=== PATIENT | male | born 1960 | race Caucasian/White ===

== ENCOUNTER 2016-10-10 22:44 | Inpatient (IN) | payer MEDICAID, OTHER ==
[~2016-10-10] VITALS: Ht 170.2 cm; Wt 75.0 kg
[2016-10-10 22:47] VITALS: Ht 170.2 cm; Wt 75.0 kg
[2016-10-11] MEDS ORDERED: LIDOCAINE/MYLANTA 40 ML BTL PO STA (00:31)
[2016-10-11] MEDS ORDERED: ONDANSETRON 4 MG INJ IV STA ×2 (00:31→02:50)
[2016-10-11] MEDS ORDERED: morphine 2 MG INJ IV STA (00:31)
[2016-10-11] MEDS ORDERED: SOD CHLORIDE 0.9% 1,000 ML IV STA (00:31)
[2016-10-11] MEDS ORDERED: FAMOTIDINE 20 MG INJ IV STA (00:31)
[2016-10-11 00:46] LABS: ADD SCAN DIFF NO
[2016-10-11 00:49] LABS: BASOPHILS % 0.2 % (0.0-2.0); EOSINOPHILS # 0.1 10^3/ul (0.0-0.5); EOSINOPHILS % 0.5 % (0.0-7.0); HEMATOCRIT 36.8 % (42.0-52.0); HEMOGLOBIN 12.5 g/dl (14.0-18.0); LYMPHOCYTES # 0.7 10^3/ul (0.8-2.9); LYMPHOCYTES % 5.5 % (15.0-51.0); MEAN CORPUSCULAR HEMOGLOBIN 28.3 pg (29.0-33.0); MEAN CORPUSCULAR VOLUME 83.3 fl (82.0-101.0); MEAN PLATELET VOLUME 10.4 fl (7.4-10.4); MONOCYTE # 0.8 10^3/ul (0.3-0.9); MONOCYTES % 6.7 % (0.0-11.0); NEUTROPHIL # 10.4 10^3/ul (1.6-7.5); NEUTROPHILS % 86.7 % (39.0-77.0); PLATELET COUNT 231 10^3/UL (140-415); RED BLOOD COUNT 4.42 10^6/ul (4.70-6.10); RED CELL DISTRIBUTION WIDTH 13.1 % (11.5-14.5)
[2016-10-11 00:57] LABS: POTASSIUM 3.2 mmol/L (3.5-5.1)
[2016-10-11 00:59] LABS: CREATININE 0.65 mg/dl (0.61-1.24)
[2016-10-11 01:00] LABS: ALBUMIN/GLOBULIN RATIO 1.33; BILIRUBIN,INDIRECT 0.3 mg/dl (0-1.1); BILIRUBIN,TOTAL 0.3 mg/dl (0.2-1.3); CALCIUM 8.9 mg/dl (8.4-10.2)
[2016-10-11 01:11] LABS: URINE BILIRUBIN (Dip) NEGATIVE (NEGATIVE); URINE BLOOD (Dip) NEGATIVE (NEGATIVE); URINE COLOR LT. YELLOW (YELLOW); URINE GLUCOSE (Dip) NEGATIVE (NEGATIVE); URINE KETONES (Dip) 15 (NEGATIVE); URINE LEUKOCYTE ESTERASE (Dip) NEGATIVE (NEGATIVE); URINE NITRITE (Dip) NEGATIVE (NEGATIVE); URINE UROBILINOGEN (Dip) 0.2 E.U./dL (0.1-1.0)
[2016-10-11 01:21] LABS: ADD UMIC NO; URINE TOTAL PROTEIN (Dip) NEGATIVE (NEGATIVE)
[2016-10-11] MEDS ORDERED: HYDROmorphONE 1 MG/ML SYG IV STA (02:50)
--- NOTE | 2016-10-11 02:55 | ERD ---
ER Documentation Chief Complaint Date/Time DATE: 10/11/16 TIME: 02:52 Chief Complaint mid abd pain w/ vomiting x 2 days HPI Patient is a 56-year-old male who comes in complaining of epigastric abdominal pain with nausea and vomiting. The who is translating states that the epigastric abdominal pain started after he ate some chicken that might been bad. The nausea and vomiting started yesterday. He has not had any fever, chest pain, shortness of breath, coughing, congestion, rhinorrhea, sore throat, or otalgia. He has not had any dysuria, hematuria, flank, back pain, or diarrhea. Eating increases the epigastric abdominal pain not eating helps the pain. He is never experienced this pain before. He has not been on any recent antibiotics nor has he traveled out of country. Nobody else has been sick. In the remainder of the systems are negative. ROS All systems reviewed and are negative except as per history of present illness. Allergies Allergies: Coded Allergies: No Known Allergy (Unverified , 07/15/13) PMhx/Soc Medical and Surgical Hx: pt denies Surgical Hx Hx Cardiac Disorders: Yes (htn) Hx Miscellaneous Medical Probl: Yes (diabetes, high cholesterol) Hx Alcohol Use: No Hx Substance Use: No Hx Tobacco Use: No Smoking Status: Never smoker Physical Exam Vitals Vital Signs Date Time Temp Pulse Resp B/P Pulse Ox O2 Delivery O2 Flow Rate FiO2 10/11/16 02:49 78 16 159/86 98 Room Air 10/10/16 22:47 100.4 87 20 191/89 98 Physical Exam Const: [] Well-developed well-nourished male sitting on the bed no acute distress Head: Atraumatic normocephalic Eyes: Bilateral pterygium noted ENT: Normal External Ears, Nose and Mouth. Neck: Full range of motion..~ No meningismus. Resp: Clear to auscultation bilaterally Cardio: Regular rate and rhythm, no murmurs Abd: Soft, mild tenderness to palpation epigastric region, no masses, rebound , or guarding noted, audible bowel sounds throughout Skin: No petechiae or rashes Back: No midline tenderness to palpation, mild right flank pain Ext: No cyanosis, or edema Neur: Awake and alert, GCS of 15, moves all extremities equally, nonfocal Psych: Normal Mood and Affect Result Diagram: 10/11/16 0021 10/11/16 0021 Results 24 hrs Laboratory Tests Test 10/11/16 00:21 10/11/16 00:45 White Blood Count 12.010^3/ul Red Blood Count 4.4210^6/ul Hemoglobin 12.5g/dl Hematocrit 36.8% Mean Corpuscular Volume 83.3fl Mean Corpuscular Hemoglobin 28.3pg Mean Corpuscular Hemoglobin Concent 34.0g/dl Red Cell Distribution Width 13.1% Platelet Count 81277^3/UL Mean Platelet Volume 10.4fl Neutrophils % 86.7% Lymphocytes % 5.5% Monocytes % 6.7% Eosinophils % 0.5% Basophils % 0.2% Nucleated Red Blood Cells % 0.0/100WBC Neutrophils # 10.410^3/ul Lymphocytes # 0.710^3/ul Monocytes # 0.810^3/ul Eosinophils # 0.110^3/ul Basophils # 0.010^3/ul Nucleated Red Blood Cells # 0.010^3/ul Sodium Level 135mmol/L Potassium Level 3.2mmol/L Chloride Level 100mmol/L Carbon Dioxide Level 28mmol/L Anion Gap 10 Blood Urea Nitrogen 13mg/dl Creatinine 0.65mg/dl Glucose Level 148mg/dl Calcium Level 8.9mg/dl Total Bilirubin 0.3mg/dl Direct Bilirubin 0.00mg/dl Indirect Bilirubin 0.3mg/dl Aspartate Amino Transf (AST/SGOT) 22IU/L Alanine Aminotransferase (ALT/SGPT) 38IU/L Alkaline Phosphatase 125IU/L Total Protein 7.0g/dl Albumin 4.0g/dl Globulin 3.00g/dl Albumin/Globulin Ratio 1.33 Lipase 117U/L Urine Color LT. YELLOW Urine Clarity CLEAR Urine pH 7.5 Urine Specific Jack[place] 1.020 Urine Ketones 15 Urine Nitrite NEGATIVE Urine Bilirubin NEGATIVE Urine Urobilinogen 0.2 E.U./dL Urine Leukocyte Esterase NEGATIVE Urine Hemoglobin NEGATIVE Urine Glucose NEGATIVE% Urine Total Protein NEGATIVE Current Medications Medications (Trade) Dose Ordered Sig/Candace Route PRN Reason Start Time Stop Time Status Last Admin Dose Admin Sodium Chloride (NS) 1,000 ml @ 1,000 mls/hr Q1H STAT IV 10/11/16 00:31 10/11/16 01:30 DC 10/11/16 00:40 Morphine Sulfate (morphine) 2 mg ONCE STAT IV 10/11/16 00:31 10/11/16 00:33 DC 10/11/16 00:40 Ondansetron HCl (Zofran Inj) 4 mg ONCE STAT IV 10/11/16 00:31 10/11/16 00:34 DC 10/11/16 00:40 Famotidine (Pepcid Iv) 20 mg ONCE STAT IV 10/11/16 00:31 10/11/16 00:34 DC 10/11/16 00:40 Miscellaneous Medication (Gi Cocktail (2)) 40 ml ONCE STAT PO 10/11/16 00:31 10/11/16 00:34 DC 10/11/16 00:40 Hydromorphone HCl (Dilaudid) 1 mg ONCE STAT IV 10/11/16 02:50 10/11/16 02:52 DC 10/11/16 03:01 Ondansetron HCl (Zofran Inj) 4 mg ONCE STAT IV 10/11/16 02:50 10/11/16 02:52 DC 10/11/16 03:01 Procedures/MDM Financial includes but is not limited to epigastric abdominal pain, gastritis, gastroenteritis, peptic ulcer disease, food poisoning, atypical angina, pancreatitis CT of the abdomen and pelvis confirmed acute early pancreatitis 0500:Patient is remained hemodynamically stable while here. Given the fact that he is a diabetic with pancreatitis and feels most prudent to have him admitted for management. Has been discussed with the patient and his family. They have no questions at this time. Departure Diagnosis: Primary Impression: Pancreatitis Chronicity: acute Pancreatitis type: idiopathic Acute pancreatitis complication: unspecified Qualified Code: K85.00 - Idiopathic acute pancreatitis, unspecified complication status Additional Impressions: Abdominal pain Abdominal location: epigastric Qualified Code: R10.13 - Epigastric pain Diabetes mellitus Diabetes mellitus type: type 2 Diabetes mellitus complication status: with unspecified complications Diabetes mellitus snf insulin use: unspecified snf insulin use status Qualified Code: E11.8 - Type 2 diabetes mellitus with complication, unspecified terminal manager insulin use status Fever Fever type: unspecified Qualified Code: R50.9 - Fever, unspecified fever cause Condition: SOLEDAD Merino Oct 11, 2016 02:55
--- NOTE | 2016-10-11 02:56 | RADRPT ---
PROCEDURE: CT Abdomen and Pelvis without contrast. CLINICAL INDICATION: Abdominal pain TECHNIQUE: CT scan of the abdomen and pelvis without contrast was performed on a multidetector hig h-resolution CT scanner. The patient was scanned without intravenous contrast. No oral contrast was administered. Coronal and sagittal reformatted images were obtained from the axial source images. Im ages were reviewed on a high-resolution PACS workstation. The total exam CTDI equals 9.93 mGy and t he total exam DLP equals 650.4 mGy-cm. One or more of the following dose reduction techniques were used: - Automated exposure control. - Adjustment of the mA and/or kV according to patient size. - Use of iterative reconstruction technique. COMPARISON: None. FINDINGS: Lower chest: Mild dependent atelectasis is seen in the posterior lower lungs. Linear atelectasis/fi brosis is seen at the lung bases. There is mild diffuse wall thickening in the distal esophagus abov e the level of the hiatal hernia which could be due to esophagitis. Liver: No abnormality seen. Gallbladder: No abnormality seen. Spleen: No abnormality seen. Stomach: Moderate hiatal hernia. Pancreas: There is mild soft tissue stranding in fat surrounding the head of the pancreas which coul d be secondary to acute pancreatitis. Adrenals: No abnormality seen. Kidneys: No abnormality seen. There is nonspecific perinephric soft tissue stranding bilaterally. Abdominal aorta: No aneurysm seen. Lymph nodes: No enlarged lymph nodes are seen. Small bowel: No dilated small bowel loops are seen. Colon: Diverticula in sigmoid, descending, transverse, ascending colon. There is no specific eviden ce of acute diverticulitis seen. Appendix: No abnormality seen. Bladder: Impression on posterior inferior bladder by enlarged prostate. Pelvic organs: Mild to moderate enlargement of prostate with impression on posterior inferior bladd er. Ascites: None seen. Osseous structures: Lumbar spondylosis. Spinal stenosis in lumbar spine. Degenerative changes at s acroiliac joints and hips. IMPRESSION: Mild soft tissue stranding in fat surrounding the head of the pancreas which could be secondary to a cute pancreatitis. Moderate hiatal hernia. Mild diffuse wall thickening in the distal esophagus abo ve the level of the hiatal hernia which could be due to esophagitis. Colonic diverticulosis. No spe cific evidence of acute diverticulitis seen. Mild to moderate enlargement of prostate. Please see a felicita. RPTAT: HJES .Mikey Berger MD, MD Date Time Electronically viewed and signed by .Mikey Berger MD, on 10/11/2016 02:56 .S/
[2016-10-11] MEDS ORDERED: ONDANSETRON 4 MG INJ IV PRN ×2 (05:30→07:30)
[2016-10-11] MEDS ORDERED: ACETAMINOPHEN 325 MG TAB PO PRN (05:30)
[2016-10-11] MEDS ORDERED: morphine 2 MG INJ IV PRN (07:30)
[2016-10-11] MEDS ORDERED: NACL 0.9% 3 ML SYG IV SCH (07:30)
[2016-10-11] MEDS ORDERED: ACETAMINOPHEN 650 MG SUPP PR PRN (07:30)
[2016-10-11] MEDS ORDERED: SIMV40TA2 PO (07:46)
[2016-10-11] MEDS ORDERED: ASPI-664 PO (07:46)
[2016-10-11] MEDS ORDERED: METF500T4 PO (07:47)
[2016-10-11] MEDS ORDERED: BENA40TA41 PO (07:47)
--- NOTE | 2016-10-11 08:01 | HP ---
DATE OF ADMISSION: 10/10/2016 TIME SEEN: 5 a.m. CHIEF COMPLAINT: Abdominal pain and vomiting. HISTORY OF PRESENT ILLNESS: The patient is a 56-year-old male with a history of diabetes, hypertens ion, dyslipidemia who presented to the emergency department with abdominal pain and nausea and vomit ing. The pain is mainly localized in the epigastric area and started after he ate some chicken whic h his thinks was probably bad. The pain and vomiting started a few hours prior to presentation . Denied any fever, chills, chest pain, shortness of breath, or urinary symptoms. When he presented to the ER, he had a temperature of 100.4, blood pressure 191/89. Laboratory value shows a WBC of 12, hemoglobin 12.5, potassium 3.2, otherwise CBC and CMP are within normal limits. CT abdomen and pelvis without contrast shows mild soft tissue stranding in the fat surrounding the head of the pancreas which could be secondary to acute pancreatitis. Also noted was moderate hiatal hernia and mild diffuse wall thickening of the distal esophagus above the level of the hiatal herni a which could be due to esophagitis. The patient was given pain medication, antiemetics, and IV flu id while here in the ER. REVIEW OF SYSTEMS: A 12-point review was performed, negative except as mentioned in the HPI. PAST MEDICAL HISTORY: As per HPI. SOCIAL HISTORY: Drinks alcohol occasionally. Denied a history of tobacco, alcohol, or illicit drug use. ALLERGIES: NO KNOWN DRUG ALLERGIES. HOME MEDICATIONS: None listed. PHYSICAL EXAMINATION: VITAL SIGNS: Stable. GENERAL: No acute distress. HEENT: No obvious head deformity. Pupils react to light. Extraocular muscles intact. No scleral icterus. CARDIOVASCULAR: Regular rate and rhythm. No extra sounds. LUNGS: Clear. ABDOMEN: Soft. There is mild discomfort to deep palpation in the epigastric area. No guarding. N o rigidity. There are positive bowel sounds. EXTREMITIES: No edema. NEUROLOGIC: No focal deficits. LABORATORY: Pertinent positives as mentioned in the HPI. IMAGING: CT abdomen and pelvis without contrast with results as mentioned in the HPI. IMPRESSION: 1. Abdominal pain, nausea, and vomiting, most likely secondary to food poisoning and possibly early pancreatitis. 2. Probable acute early pancreatitis. 3. Sepsis as evidenced by fever and leukocytosis, secondary to above. 4. History of hypertension. 5. History of diabetes. 6. History of dyslipidemia. 7. Mild hypokalemia. PLAN: We will keep n.p.o. with IV fluids. We will provide pain medication and antiemetics as neede d. We will repeat his lipase along with amylase. Will correct electrolytes as needed. For the kayleen dwyer, he will be on insulin. Given his presentation of sepsis, will check urine culture and blood culture. Further workup and management per clinical course. Dictated By: JORGE LUIS HENDERSON/COLE Conf#: [id number] DID#: [id number]
[2016-10-11 08:21] VITALS: TEMP 98.2
[2016-10-11] MEDS: DEXTROSE 5%-0.45% NACL 1,000 ML IV SCH ×2 (08:48→15:40)
[2016-10-11] MEDS: FAMOTIDINE 20 MG INJ IV SCH ×2 (09:31→21:04)
[2016-10-11 16:08] VITALS: BP 160/77; PULSE 62; RESP 17
--- NOTE | 2016-10-11 16:23 | PN ---
Date/Time of Note Date/Time of Note DATE: 10/11/16 TIME: 16:18 Assessment/Plan VTE Prophylaxis VTE Prophylaxis Intervention: SCD's Lines/Catheters IV Catheter Type (from Nrs): Peripheral IV Assessment/Plan Chief Complaint/Hosp Course Assessment and plan 1. Abdominal pain. Suspect secondary to pancreatitis. Continue on IV hydration. npo for now. Continue with analgesics as needed 2. Suspect sirs. Route present. Follow up on panculture 2. Essential hypertension. Continue on antihypertensives and adjust as needed 3. Diabetes. Continue on insulin regimen 4. Hypokalemia. Electrolytes be replaced 5. History of dyslipidemia follow up on fasting panel Disposition and plan: Await for clinical improvement of suspect early pancreatitis. Follow-up on CBC. Follow-up on panculture. Discussed in of care with Dr. Hudson Problems: Subjective 24 Hr Interval Summary Free Text/Dictation Does report still having some midepigastric pain. No other specific complaints. Exam/Review of Systems Vital Signs Vitals Vital Signs Date Time Temp Pulse Resp B/P Pulse Ox O2 Delivery O2 Flow Rate FiO2 10/11/16 16:08 98.2 62 17 160/77 98 Room Air Exam General: No acute signs or symptoms of distress Eyes: pupils equal round, Anicteric sclera Neck: Supple nontender, no JVD Cardiac: S1, S2 auscultated, regular rhythm and rate Pulmonary: No coarse rhonchi or breathing auscultated GI: Minimal palpation of epigastric area Extremities: No edema bilateral lower extremities Skin: Clean dry and intact Neurologic: Alert to person place and time and situation Results Result Diagram: 10/11/16 0021 10/11/16 0021 Results 24 hrs Laboratory Tests Test 10/11/16 00:21 10/11/16 00:45 White Blood Count 12.0 H Red Blood Count 4.42 L Hemoglobin 12.5 L Hematocrit 36.8 L Mean Corpuscular Volume 83.3 Mean Corpuscular Hemoglobin 28.3 L Mean Corpuscular Hemoglobin Concent 34.0 Red Cell Distribution Width 13.1 Platelet Count 231 Mean Platelet Volume 10.4 Neutrophils % 86.7 H Lymphocytes % 5.5 L Monocytes % 6.7 Eosinophils % 0.5 Basophils % 0.2 Nucleated Red Blood Cells % 0.0 Neutrophils # 10.4 H Lymphocytes # 0.7 L Monocytes # 0.8 Eosinophils # 0.1 Basophils # 0.0 Nucleated Red Blood Cells # 0.0 Sodium Level 135 Potassium Level 3.2 L Chloride Level 100 Carbon Dioxide Level 28 Anion Gap 10 Blood Urea Nitrogen 13 Creatinine 0.65 Glucose Level 148 Calcium Level 8.9 Total Bilirubin 0.3 Direct Bilirubin 0.00 Indirect Bilirubin 0.3 Aspartate Amino Transf (AST/SGOT) 22 Alanine Aminotransferase (ALT/SGPT) 38 Alkaline Phosphatase 125 H Total Protein 7.0 Albumin 4.0 Globulin 3.00 Albumin/Globulin Ratio 1.33 Lipase 117 Urine Color LT. YELLOW Urine Clarity CLEAR Urine pH 7.5 Urine Specific Hailey 1.020 Urine Ketones 15 Urine Nitrite NEGATIVE Urine Bilirubin NEGATIVE Urine Urobilinogen 0.2 E.U./dL Urine Leukocyte Esterase NEGATIVE Urine Hemoglobin NEGATIVE Urine Glucose NEGATIVE Urine Total Protein NEGATIVE Medications Medications Current Medications Dextrose/Sodium Chloride (D5-1/2ns) 1,000 ml @ 125 mls/hr Q8H IV Last administered on 10/11/16 15:40; Admin Dose 125 MLS/HR; Start 10/11/16 at 07:19 Ondansetron HCl (Zofran Inj) 4 mg Q6H PRN IV NAUSEA AND/OR VOMITING; Start at 07:30 Acetaminophen (Tylenol Supp) 650 mg Q6H PRN [place] PAIN LEVEL 1-3 OR FEVER; Start 10/11/16 at 07:30 Morphine Sulfate (morphine) 2 mg Q4H PRN IV SEVERE PAIN LEVEL 7-10; Start 10/11 at 07:30 Famotidine (Pepcid Iv) 20 mg Q12 IV Last administered on 10/11/16 09:31; Admin Dose 20 MG; Start 10/11/16 at 09:00 OZZY OHARA Oct 11, 2016 16:23
[2016-10-11] MEDS ORDERED: hydrALAzine 20 MG INJ IV PRN (16:30)
[2016-10-11] MEDS ORDERED: POTASSIUM CHLORIDE 20 MEQ in SOD CHLORIDE 0.9% 100 ML IVPB ONE (17:30)
[2016-10-11 20:00] VITALS: BP 155/80; PULSE 66; RESP 20
[2016-10-12] MEDS: DEXTROSE 5%-0.45% NACL 1,000 ML IV SCH ×3 (00:10→12:06)
[2016-10-12 05:51] LABS: ADD SCAN DIFF NO
[2016-10-12 06:04] LABS: BASOPHILS % 0.3 % (0.0-2.0); EOSINOPHILS # 0.2 10^3/ul (0.0-0.5); EOSINOPHILS % 3.3 % (0.0-7.0); HEMATOCRIT 33.9 % (42.0-52.0); HEMOGLOBIN 10.9 g/dl (14.0-18.0); LYMPHOCYTES # 1.1 10^3/ul (0.8-2.9); LYMPHOCYTES % 16.6 % (15.0-51.0); MEAN CORPUSCULAR HEMOGLOBIN 27.7 pg (29.0-33.0); MEAN CORPUSCULAR HGB CONC 32.2 g/dl (32.0-37.0); MEAN PLATELET VOLUME 10.3 fl (7.4-10.4); MONOCYTE # 0.6 10^3/ul (0.3-0.9); MONOCYTES % 8.6 % (0.0-11.0); NEUTROPHIL # 4.5 10^3/ul (1.6-7.5); NEUTROPHILS % 70.9 % (39.0-77.0); PLATELET COUNT 212 10^3/UL (140-415); RED BLOOD COUNT 3.94 10^6/ul (4.70-6.10); RED CELL DISTRIBUTION WIDTH 13.4 % (11.5-14.5); WHITE BLOOD COUNT 6.4 10^3/ul (4.8-10.8)
[2016-10-12 06:13] LABS: ALBUMIN 3.3 g/dl (3.3-4.9)
[2016-10-12 06:14] LABS: POTASSIUM 3.8 mmol/L (3.5-5.1)
[2016-10-12 06:16] LABS: ALBUMIN/GLOBULIN RATIO 1.22; BILIRUBIN,INDIRECT 0.2 mg/dl (0-1.1); BILIRUBIN,TOTAL 0.2 mg/dl (0.2-1.3); CREATININE 0.77 mg/dl (0.61-1.24)
[2016-10-12 06:17] LABS: CALCIUM 8.4 mg/dl (8.4-10.2); MAGNESIUM 2.2 mg/dl (1.7-2.5); PHOSPHORUS 2.4 mg/dl (2.5-4.9)
[2016-10-12 07:55] VITALS: BP 151/81; RESP 18
[2016-10-12] MEDS: FAMOTIDINE 20 MG INJ IV SCH (09:05)
[2016-10-12] MEDS ORDERED: BENA40TA41 PO (13:09)
[2016-10-12] MEDS ORDERED: ASPI-664 PO (13:09)
[2016-10-12] MEDS ORDERED: METF500T4 PO (13:09)
[2016-10-12] MEDS ORDERED: SIMV40TA2 PO (13:09)
--- NOTE | 2016-10-12 13:10 | PDOCDIS ---
Discharge Instructions DIAGNOSIS Discharge Diagnosis: abd pain from early acute pancreatitis CONDITION Patient Condition: Stable HOME CARE INSTRUCTIONS: Diet Instructions: Low Fat /Cholesterol FOLLOW UP/APPOINTMENTS Appointments 1. Follow up with your primary care provider in one week OZZY OHARA Oct 12, 2016 13:10
== END 2016-10-12 18:05 | disposition home or self-care (01) | DRG 440 ==
LOC: E/R 22:44 → PP2 10-11 05:11
PROVIDERS: ADMIT Internal Medicine; ATTEND Internal Medicine
DX: K85.90 Acute pancreatitis without necrosis or infection, unspecified (principal); E11.9 Type 2 diabetes mellitus without complications; Z79.4 Long term (current) use of insulin; E78.5 Hyperlipidemia, unspecified; E87.6 Hypokalemia
CPT/HCPCS: 74176; 80053; 80061; 81003; 82150; 83036; 83690; 83735; 84100; 85025; 87086; 96374; 96375; 96376; J1170; J2270; J2405; J3480; J7030; J7042

== ENCOUNTER 2017-04-30 15:14 | Emergency (ER) | payer MEDICAID, OTHER ==
[~2017-04-30] VITALS: Wt 69.0 kg
[~2017-04-30 15:14] MED LIST: ASPI-664 PO; BENA40TA41 PO; METF500T4 PO; SIMV40TA2 PO
[2017-04-30] MEDS ORDERED: ACETAMINOPHEN 500 MG TAB PO STA (15:55)
--- NOTE | 2017-04-30 16:42 | ERD ---
ER Documentation Chief Complaint Date/Time DATE: 04/30/17 TIME: 16:38 Chief Complaint left arm numbness this morning, no weakness, no droop, no slurred speech HPI This is a 57-year-old male who presents to the emergency department today complaining of right-sided numbness in his right arm and right leg. States he woke up like that this morning. 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 Denies any headache, dizziness, blurred vision, pain. ROS All systems reviewed and are negative except as per history of present illness. Medications Home Meds Active Scripts Naproxen* (Naprosyn*) 500 Mg Tablet, 500 MG PO BID Y for PAIN AND/OR INFLAMMATION, #30 TAB Prov:ELY OVERTON PA-C 04/30/17 Metformin* (Glucophage*) 500 Mg Tab, 500 MG PO WITH BREAKFAST DINNE, #90 TAB Prov:REGJUNITOROZZY 10/12/16 Benazepril Hcl* (Benazepril Hcl*) 40 Mg Tablet, 40 MG PO DAILY, #30 TAB Prov:REGIDOROZZY 10/12/16 Simvastatin* (Zocor*) 40 Mg Tablet, 40 MG PO QHS, #30 TAB Prov:REGJUNITOROZZY 10/12/16 Aspirin* (Aspirin* EC) 81 Mg Tablet.dr, 81 MG PO DAILY for 30 Days, TAB Prov:REGJUNITOROZZY 10/12/16 Allergies Allergies: Coded Allergies: No Known Allergy (Unverified , 07/15/13) PMhx/Soc History of Surgery: No Anesthesia Reaction: No Hx Neurological Disorder: No Hx Respiratory Disorders: No Hx Cardiac Disorders: Yes (hypertension,hypercholesterolemia) Hx Psychiatric Problems: No Hx Miscellaneous Medical Probl: Yes (dm) Hx Alcohol Use: No Hx Substance Use: No Hx Tobacco Use: No Smoking Status: Never smoker Physical Exam Vitals Vital Signs Date Time Temp Pulse Resp B/P Pulse Ox O2 Delivery O2 Flow Rate FiO2 04/30/17 15:17 97.9 66 17 155/84 98 Physical Exam Const: NAD Head: Atraumatic Eyes: Normal Conjunctiva. PERRLA. EOM intact. ENT: Normal External Ears, Nose and Mouth. Neck: Full range of motion..~ No meningismus. Resp: Clear to auscultation bilaterally Cardio: Regular rate and rhythm, no murmurs Abd: Soft, non tender, non distended. Normal bowel sounds Skin: No petechiae or rashes Back: No midline or flank tenderness Ext: No cyanosis, or edema to range of motion right leg and right arm. Neur: Awake and alert cranial nerves II through XII intact. No gait ataxia. Psych: Normal Mood and Affect Results 24 hrs Current Medications Medications (Trade) Dose Ordered Sig/Candace Route PRN Reason Start Time Stop Time Status Last Admin Dose Admin Acetaminophen (Tylenol Tab) 500 mg ONCE STAT PO 04/30/17 15:55 04/30/17 15:56 DC 04/30/17 16:29 DIAGNOSTIC IMAGING REPORT Patient: ZACH OWENS : 1960 Age: 57 Sex: M MR #: [id number] DOS: 04/30/17 0000 Ordering MD: ELY OVERTON PA-C Location: [facility] Room/Bed: PROCEDURE: Noncontrast CT Head. CLINICAL INDICATION: Right arm numbness. TECHNIQUE: Noncontrast CT of the head was obtained. The administered radiation dose was CTDI vol = 44.63 mGy, DLP = 630.2 mGy-cm. One or more of the following dose reduction techniques were used: Automated exposure control, Adjustment of the mA and/or kV according to patient size, or Use of iterative reconstruction technique. COMPARISON: There are no similar studies submitted for comparison. FINDINGS: There is minimal generalized cerebral volume loss. There are mild vascular calcifications within the intracranial carotid arteries. There is no loss of cooney-white differentiation to suggest acute territorial infarction. There is no acute intracranial hemorrhage. There is no mass effect. No midline shift is identified. The orbits are within normal limits. The paranasal sinuses are well aerated. No destructive osseous lesion is identified. IMPRESSION: 1. No acute intracranial hemorrhage. 2. Minimal generalized cerebral volume loss. Further findings as detailed above. RPTAT: PP .Yoseph Hobbs MD, MD Date Time Electronically viewed and signed by .Yoseph Hobbs MD, MD on 04/30/2017 16:53 .F/ CC: ELY OVERTON PA-C DIAGNOSTIC IMAGING REPORT Patient: ZACH OWENS : 1960 Age: 57 Sex: M MR #: [id number] DOS: 04/30/17 0000 Ordering MD: ELY OVERTON PA-C Location: [facility] Room/Bed: PROCEDURE: CT Cervical Spine without contrast. CLINICAL INDICATION: Right-sided weakness. TECHNIQUE: Noncontrast CT of the cervical spine was performed with axial images. Coronal and sagittal images were also performed. The administered radiation dose was CTDI vol = 22.08 mGy, DLP = 408.21 mGy-cm. One or more of the following dose reduction techniques were used: Automated exposure control, Adjustment of the mA and/or kV according to patient size, or Use of iterative reconstruction technique. COMPARISON: There are no similar studies submitted for comparison. FINDINGS: There is preservation of the normal cervical lordosis. The vertebral body heights are maintained. There is normal alignment. There is no destructive osseous lesion. No acute fracture is identified. C2-C3 : There is mild to moderate disc space narrowing. There is a 1 mm circumferential disc osteophyte complex without spinal canal or bilateral foraminal stenosis. C3-C4 : There is mild to moderate disc space narrowing. There is a 3 mm central disk/osteophyte protrusion mildly indenting the spinal cord with mild to moderate spinal canal stenosis. There is mild bilateral facet arthropathy and right-sided uncovertebral hypertrophy without bilateral foraminal stenosis. C4-C5 : There is mild to moderate disc space narrowing. There is a 2 mm central disk/osteophyte protrusion mildly indenting the spinal cord with mild to moderate spinal canal stenosis. There is moderate right and mild left facet arthropathy and bilateral uncovertebral hypertrophy causing mild bilateral foraminal stenosis. C5-C6 : There is moderate disc space narrowing. There is 1 mm circumferential disc osteophyte complex with mild spinal canal stenosis. There is moderate by facet arthropathy and bilateral uncovertebral hypertrophy causing mild to moderate bilateral foraminal stenosis. C6-C7 : There is mild to moderate disc space narrowing. There is 1 mm circumferential disc osteophyte complex without spinal canal stenosis. There is mild bilateral facet arthropathy without bilateral foraminal stenosis. C7-T1 : There is no disc herniation, spinal canal, or foraminal stenosis. There is moderate bilateral facet arthropathy. IMPRESSION: 1. No acute fracture or subluxation. 2. Multilevel spinal canal stenosis most at the C3-C4 C4-C5 where there are central disk/osteophyte protrusions mildly indenting the spinal cord with mild to moderate spinal canal stenosis. 3. Multilevel bilateral foraminal stenosis without nerve root impingement. Further findings as detailed above. RPTAT: PP .Yoseph Hobbs MD, MD Date Time Electronically viewed and signed by .Yoseph Hobbs MD, MD on 04/30/2017 16:57 .F/ CC: ELY OVERTON PA-C Procedures/MDM This is a 57-year-old male who presents to the emergency department today complaining of right arm numbness and right leg numbness that started this morning. 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 Patient does not appear to have any focal neurologic deficits and no gait ataxia however given patient's age I did ask the patient to be further evaluated by Dr. Solis who has agreed that the patient should get a head CT scan as well as a cervical spine CT scan and EKG EKG read and interpreted by Dr. Solis. Rate [address] elevation. No QT prolongation. Normal sinus rhythm. Low suspicion for acute CT. PE, pericarditis. Head CT noncontrast shows no acute intracranial hemorrhage, mass-effect, midline shift. There is minimal generalized cerebral volume loss. Cervical Spine CT shows no acute fracture or subluxation. There are multilevel spinal canal stenosis most at the C3 and C4 C4 and C5 where there are central disc osteophyte protrusions mildly indenting the spinal cord with mild to moderate spinal canal stenosis. There is multilevel bilateral foraminal stenosis without nerve root impingement. This is possibly the cause of the patient's right arm numbness. Patient was given Tylenol here in the emergency department. He will be given a prescription for Naprosyn for home. I have explained the results of the patient. I explained to them that they need to follow-up with her primary care physician for referral to customer engagement specialist. At this time the patient is stable for discharge and outpatient management. Patient should follow up with their PCP in the next 1-2 days. They may return to the emergency department sooner for any persistent or worsening of symptoms. Patient understood and agreed with the plan. Departure Diagnosis: Primary Impression: Arm numbness ELY OVERTON PA-C Apr 30, 2017 16:42
--- NOTE | 2017-04-30 16:53 | RADRPT ---
PROCEDURE: Noncontrast CT Head. CLINICAL INDICATION: Right arm numbness. TECHNIQUE: Noncontrast CT of the head was obtained. The administered radiation dose was CTDI vol = 44.63 mGy, DLP = 630.2 mGy-cm. One or more of the following dose reduction techniques were used: Aut omated exposure control, Adjustment of the mA and/or kV according to patient size, or Use of iterati ve reconstruction technique. COMPARISON: There are no similar studies submitted for comparison. FINDINGS: There is minimal generalized cerebral volume loss. There are mild vascular calcifications within the intracranial carotid arteries. There is no loss of conoey-white differentiation to suggest acute territorial infarction. There is no acute intracranial hemorrhage. There is no mass effect. No midline shift is identified. The orbits are within normal limits. The paranasal sinuses are well aerated. No destructive osseous lesion is identified. IMPRESSION: 1. No acute intracranial hemorrhage. 2. Minimal generalized cerebral volume loss. Further findings as detailed above. RPTAT: PP .Yoseph Hobbs MD, Date Time Electronically viewed and signed by .Yoseph Hobbs MD, on 04/30/2017 16:53 .F/
--- NOTE | 2017-04-30 16:57 | RADRPT ---
PROCEDURE: CT Cervical Spine without contrast. CLINICAL INDICATION: Right-sided weakness. TECHNIQUE: Noncontrast CT of the cervical spine was performed with axial images. Coronal and sagitta l images were also performed. The administered radiation dose was CTDI vol = 22.08 mGy, DLP = 408.2 1 mGy-cm. One or more of the following dose reduction techniques were used: Automated exposure contr ol, Adjustment of the mA and/or kV according to patient size, or Use of iterative reconstruction osmar hnique. COMPARISON: There are no similar studies submitted for comparison. FINDINGS: There is preservation of the normal cervical lordosis. The vertebral body heights are maintained. There is normal alignment. There is no destructive osseous lesion. No acute fracture is identified. C2-C3 : There is mild to moderate disc space narrowing. There is a 1 mm circumferential disc osteoph yte complex without spinal canal or bilateral foraminal stenosis. C3-C4 : There is mild to moderate disc space narrowing. There is a 3 mm central disk/osteophyte prot rusion mildly indenting the spinal cord with mild to moderate spinal canal stenosis. There is mild b ilateral facet arthropathy and right-sided uncovertebral hypertrophy without bilateral foraminal german nosis. C4-C5 : There is mild to moderate disc space narrowing. There is a 2 mm central disk/osteophyte prot rusion mildly indenting the spinal cord with mild to moderate spinal canal stenosis. There is modera te right and mild left facet arthropathy and bilateral uncovertebral hypertrophy causing mild bilate ral foraminal stenosis. C5-C6 : There is moderate disc space narrowing. There is 1 mm circumferential disc osteophyte comple x with mild spinal canal stenosis. There is moderate by facet arthropathy and bilateral uncovertebra l hypertrophy causing mild to moderate bilateral foraminal stenosis. C6-C7 : There is mild to moderate disc space narrowing. There is 1 mm circumferential disc osteophyt e complex without spinal canal stenosis. There is mild bilateral facet arthropathy without bilateral foraminal stenosis. C7-T1 : There is no disc herniation, spinal canal, or foraminal stenosis. There is moderate bilatera l facet arthropathy. IMPRESSION: 1. No acute fracture or subluxation. 2. Multilevel spinal canal stenosis most at the C3-C4 C4-C5 where there are central disk/osteophyte protrusions mildly indenting the spinal cord with mild to moderate spinal canal stenosis. 3. Multilevel bilateral foraminal stenosis without nerve root impingement. Further findings as detailed above. RPTAT: PP .Yoseph Hobbs MD, Date Time Electronically viewed and signed by .Yoseph Hobbs MD, MD on 04/30/2017 16:57 .F/
[2017-04-30] MEDS ORDERED: NAPR-260 PO (17:12)
[2017-04-30 17:57] VITALS: BP 145/82; PULSE 65; RESP 17; TEMP 97.9
== END 2017-04-30 17:57 | disposition home or self-care (01) ==
LOC: FTE 15:14
DX: R20.0 Anesthesia of skin (principal); I10 Essential (primary) hypertension; E11.9 Type 2 diabetes mellitus without complications; Z79.82 Long term (current) use of aspirin; Z79.84 Long term (current) use of oral hypoglycemic drugs
CPT/HCPCS: 70450; 72125; Z7502; Z7610